=== PATIENT | female | born 1950 | race Caucasian/White ===

== ENCOUNTER 2022-11-16 18:12 | Inpatient (IN) | payer MEDICARE ==
[~2022-11-16] VITALS: Ht 149.9 cm; Wt 40.1 kg
[2022-11-16] MEDS ORDERED: polyethylene glycoL POWDER 17 GM (MIRALAX) PACK PO PRN (18:15)
[2022-11-16] MEDS ORDERED: RT-ALBUTEROL SULF 2.5 MG/3 ML PRE-MIX VIAL INH PRN ×2 (18:15→21:30)
[2022-11-16] MEDS ORDERED: CALCIUM CARBONATE 500 MG (TUMS) TAB.CHEW PO PRN (18:15)
[2022-11-16] MEDS ORDERED: ONDANSETRON 4 MG/2 ML (SDV) Z0FRAN IV PRN (18:15)
[2022-11-16] MEDS ORDERED: ANTACID SUSP 30 ML UDC (MYLANTA) PO PRN (18:15)
[2022-11-16 20:14] VITALS: BP 150/83
[2022-11-16] MEDS ORDERED: HYDR-3817 PO (20:32)
[2022-11-16] MEDS ORDERED: CITA20TA12 PO (20:32)
[2022-11-16] MEDS ORDERED: LISI20TA26 PO (20:32)
[2022-11-16] MEDS ORDERED: ALEN70TA85 PO (20:32)
[2022-11-16] MEDS ORDERED: hydrALAZINE (APESOLINE) 20 MG/ML VIAL IV PRN (20:45)
[2022-11-16] MEDS ORDERED: MELATONIN 3 MG TABLET ONE (21:05)
[2022-11-16] MEDS ORDERED: HYDROcodone/APAP 7.5 MG/325 MG (LORTAB, LORCET PLUS) TABLET PO ONE (21:05)
[2022-11-16] MEDS: HYDROcodone/APAP 7.5 MG/325 MG (LORTAB, LORCET PLUS) TABLET PO PRN (21:14)
[2022-11-16] MEDS: MELATONIN 3 MG TABLET PO PRN (21:14)
[2022-11-16] MEDS: RT-ALBUTEROL SULF 2.5 MG/3 ML PRE-MIX VIAL INH SCH (21:59)
[2022-11-17] VITALS (7 sets, daily range): BP systolic 108–134; BP diastolic 59–76
[2022-11-17] MEDS: RT-ALBUTEROL SULF 2.5 MG/3 ML PRE-MIX VIAL INH SCH ×6 (03:30→22:18)
[2022-11-17] MEDS ORDERED: ALBU8.5H6 IH (03:44)
[2022-11-17 06:35] LABS: HEMATOCRIT 39 % (35-52); HEMOGLOBIN 12.8 g/dL (11.5-16.0); MEAN CORPUSCULAR HEMOGLOBIN 31 pg (25-34); MEAN CORPUSCULAR HGB CONC 33 g/dL (32-36); MEAN CORPUSCULAR VOLUME 95 fL (80-99); MEAN PLATELET VOLUME 9.1 fL (9.0-12.2); PLATELET COUNT 200 10^3/uL (130-400); WHITE BLOOD COUNT 4.9 10^3/uL (4.3-11.0)
[2022-11-17 06:52] LABS: POTASSIUM 4.5 MMOL/L (3.6-5.0)
[2022-11-17 06:53] LABS: CALCIUM 9.2 MG/DL (8.5-10.1)
[2022-11-17 06:57] LABS: CREATININE SERUM 1.64 MG/DL (0.60-1.30)
[2022-11-17] MEDS: lisINopril 20 MG (PRINIVIL) TABLET PO SCH (08:35)
[2022-11-17] MEDS: OSELTAMIVIR 30 MG (TAMIFLU) CAPSULE PO SCH (08:35)
[2022-11-17] MEDS: predniSONE 20 MG TAB PO SCH (08:39)
--- NOTE | 2022-11-17 09:15 | History & Physical ---
MARYCARMEN KING 11/17/22 0915: History of Present Illness History of Present Illness Reason for visit/HPI Ms. Hoang is a 72 year old female with a PMHx of COPD, HTN, CKD III, and an abdominal aortic aneurysm who presents from [facility] for acute COPD exacerbation. Patient states she began experiencing SOA, subjective fever, and productive cough on Monday 11/12. Patient states her symptoms progressively worsened throughout the week. Patient denies having at-home pulse oximetry. Patient states she went the the [facility] ED on Friday 11/16 due to worsening SOA and lack of symptom improvement. Patient reports testing positive for influenza in the ED; patient denies knowing if she tested positive for flu A or B. Patient reports associated symptoms of headache, sore throat, and intermittent nausea. Patient denies abdominal pain, vomiting, or diarrhea. Patient reports a previous occurrence of COPD exacerbation [facility] 3 years ago. Patient reports albuterol breathing treatments are improving her symptoms. Patient reports chest pain she associates with GERD. Counseled patient if she experiences another occurrence of CP an EKG will be conducted. Date of Admission Nov 16, 2022 at 20:00 Date Seen by a Provider: Nov 17, 2022 Time Seen by a Provider: 08:30 I consulted on this patient on 11/17/22 09:06 Attending Physician Sharri Ma DO Admitting Physician Admitting Physician: Tyler Chauhan MD Attending Physician: Tyler Chauhan MD Consult Allergies and Home Medications Allergies Coded Allergies: prednisone (Verified Allergy, Mild, 11/17/22) reaction- bruising and swelling to trunk and upper extremities cephalexin (Unverified Allergy, Unknown, hives, 11/17/22) Patient Home Medication List Home Medication List Reviewed: Yes Albuterol Sulfate (Ventolin Hfa) 90 Mcg Hfa.aer.ad, 2 PUFF IH Q4H PRN for WHEEZING, (Reported) Entered as Reported by: PIPER DE LA PAZ on 11/17/22343 Last Action: Reviewed Alendronate Sodium (Fosamax) 70 Mg Tablet, 70 MG PO WEEK, (Reported) Entered as Reported by: PIPER DE LA PAZ on 11/16/222031 Last Action: Reviewed Citalopram Hydrobromide (Celexa) 20 Mg Tablet, 20 MG PO DAILY, (Reported) Entered as Reported by: PIPER DE LA PAZ on 11/16/222031 Last Action: Continued Hydrocodone/Acetaminophen (Hydrocodone-Acetamin 7.5-325) 7.5 Mg-325 Mg Tablet, 1 EACH PO Q6H PRN for PAIN-MODERATE (5-7), (Reported) Entered as Reported by: PIPER DE LA PAZ on 11/16/222031 Last Action: Continued Lisinopril (Lisinopril) 20 Mg Tablet, 20 MG PO DAILY, (Reported) Entered as Reported by: PIPER DE LA PAZ on 11/16/222031 Last Action: Continued Past Cedtnuw-Wyvlpa-Asdfah Hx Patient Social History Marrital Status: Employed/Student: retired Tobacco Use?: Yes Tobacco type used: Cigarettes Smoking Status: Current Everyday Smoker (1/2 pack per day for past 55 years) Substance use?: Yes Substance type: Marijuana (smoking and edibles. Last use on Monday 11/12 (smoked)) Substance frequency: Once in a while Alcohol Use?: No Pt feels they are or have been: No Immunizations Up To Date Date of Influenza Vaccine: Nov 12, 2022 Current Status Advance Directives: No Communicates: Verbally Primary Language: Moldovan Preferred Spoken Language: Moldovan Is interpretation needed?: No Past Medical History Surgeries: Abdominal (exploratory laparotomy), Appendectomy, Section, Hysterectomy COPD Aneurysm (abdominal aortic) [employer] History: Hysterectomy Abdominal Hernia Cervical Did You Recieve Any Treatments: Yes What Type of Treatment Did You: Surgical Intervention Family Medical History No Pertinent Family Hx Review of Systems Constitutional: no symptoms reported; No malaise EENTM: throat pain Respiratory: cough (productive with clear sputum); No short of breath Cardiovascular: no symptoms reported; No chest pain, No edema Gastrointestinal: No abdominal pain, No diarrhea; nausea; No vomiting Genitourinary: no symptoms reported : No Musculoskeletal: no symptoms reported Skin: no symptoms reported Psychiatric/Neurological: Headache All Other Systems Reviewed Negative Unless Noted: Yes Physical Exam Vital Signs Vital Signs - First Documented 11/16/22 11/16/22 11/16/22 20:00 20:14 21:19 Temp 37.1 Pulse 104 Resp 20 B/P (MAP) 150/83 (105) Pulse Ox 95 O2 Delivery Nasal Cannula O2 Flow Rate 3.00 FiO2 32 Capillary Refill : Height, Weight, BMI Height: '" Weight: lbs. oz. kg; 17.84 BMI Method: General Appearance: No Apparent Distress, WD/WN HEENT: PERRL/EOMI Respiratory: No Accessory Muscle Use, Wheezing (bilateral expiratory wheezing) Cardiovascular: Regular Rate, Rhythm, No Murmur Gastrointestinal: Normal Bowel Sounds, Non Tender, Soft Extremity: No Pedal Edema Neurologic/Psychiatric: Alert, Oriented x3, Normal Mood/Affect Skin: Normal Color, Warm/Dry Assessment/Plan Assessment and Plan 1. Acute COPD exacerbation -Supplemental oxygen for respiratory support as needed. Patient is currently using 2L via nasal cannula. Begin to wean as tolerated to room air -Systemic steroid therapy with dexamethasone 6mg PO daily -Nebulized albuterol breathing treatments 2.5mg Q4H -EKG if patient indicates chest pain 2. Influenza A -Tamiflu 30mg PO daily 3. HTN -Lisinopril 20mg PO daily; monitory BP (home medication) 4. CKD III -Cr 1.64, BUN 23 -Monitor with daily BMP -Encourage PO hydration and avoid NSAIDs for pain management 5. Aortic aneurysm -Last evaluated at [place] in summer of 2021 -Continue out-patient management 6. Depression -Citalopram 20mg PO daily (home medication) 7. Osteoporosis -Resume Lortab 7.5mg PO Q6H PRN for associated pain Admission Diagnosis Admission Status: Inpatient Order (span 2 midnights) Reason for Inpatient Admission: Acute COPD exacerbation TYLER CHAUHAN MD 11/17/22 1243: Allergies and Home Medications Allergies Coded Allergies: prednisone (Verified Allergy, Mild, 11/17/22) reaction- bruising and swelling to trunk and upper extremities cephalexin (Unverified Allergy, Unknown, hives, 11/17/22) Patient Home Medication List Albuterol Sulfate (Ventolin Hfa) 90 Mcg Hfa.aer.ad, 2 PUFF IH Q4H PRN for WHEEZING, (Reported) Entered as Reported by: PIPER DE LA PAZ on 11/17/22 0344 Last Action: Reviewed Alendronate Sodium (Fosamax) 70 Mg Tablet, 70 MG PO WEEK, (Reported) Entered as Reported by: PIPER DE LA PAZ on 11/16/222031 Last Action: Reviewed Citalopram Hydrobromide (Celexa) 20 Mg Tablet, 20 MG PO DAILY, (Reported) Entered as Reported by: PIPER DE LA PAZ on 11/16/222031 Last Action: Continued Hydrocodone/Acetaminophen (Hydrocodone-Acetamin 7.5-325) 7.5 Mg-325 Mg Tablet, 1 EACH PO Q6H PRN for PAIN-MODERATE (5-7), (Reported) Entered as Reported by: PIPER DE LA PAZ on 11/16/222031 Last Action: Continued Lisinopril (Lisinopril) 20 Mg Tablet, 20 MG PO DAILY, (Reported) Entered as Reported by: PIPER DE LA PAZ on 11/16/222031 Last Action: Continued Assessment/Plan Assessment and Plan Patient admitted to the hospital secondary to acute hypoxic respiratory failure secondary to COPD exacerbation from lower respiratory tract infection and influenza. I saw patient shortly after she returned from the bathroom and had taken her oxygen off and sats were into the 70s. Respiratory therapy was at bedside and had replaced this. Oxygen saturation improved into the 90s while at bedside. She reports feeling much better than yesterday and was able to eat some this morning. She has no specific complaints at this time. She does have an allergy to prednisone listed which is more likely an adverse effect but we will DC prednisone and resume Solu-Medrol if she tolerated that at the previous hospital. Supervisory-Addendum Brief Verification & Attestation Participated in pt care: history, MDM, physical Personally performed: exam, history, MDM, supervision of care Care discussed with: Medical Student Procedures: n/a Results interpretation: Verified all documentation Verification and Attestation of Medical Student E/M Service A medical student performed and documented this service in my presence. I reviewed and verified all information documented by the medical student and made modifications to such information, when appropriate. I personally performed the physical exam and medical decision making. Tyler Chauhan, Nov 17, 2022,12:42 MARYCARMEN KING Nov 17, 2022 09:15 TYLER CHAUHAN MD Nov 17, 2022 12:43
[2022-11-17] MEDS: HYDROcodone/APAP 7.5 MG/325 MG (LORTAB, LORCET PLUS) TABLET PO PRN (16:05)
[2022-11-17] MEDS ORDERED: methylPREDNISolone 40 MG/ML (Solu-MEDROL) VIAL IV SCH (18:00)
[2022-11-17] MEDS: guaiFENesin (MUCINEX) 600 MG TAB PO SCH (20:50)
[2022-11-17] MEDS: ACETAMINOPHEN 325 MG TABLET PO PRN (23:59)
[2022-11-18] VITALS (7 sets, daily range): BP systolic 111–150; BP diastolic 66–80
[2022-11-18] MEDS: RT-ALBUTEROL SULF 2.5 MG/3 ML PRE-MIX VIAL INH SCH ×6 (02:54→22:19)
[2022-11-18 06:56] LABS: HEMATOCRIT 40 % (35-52); HEMOGLOBIN 13.1 g/dL (11.5-16.0); MEAN CORPUSCULAR HEMOGLOBIN 31 pg (25-34); MEAN CORPUSCULAR HGB CONC 33 g/dL (32-36); MEAN CORPUSCULAR VOLUME 95 fL (80-99); MEAN PLATELET VOLUME 9.1 fL (9.0-12.2); PLATELET COUNT 188 10^3/uL (130-400)
[2022-11-18 07:23] LABS: CALCIUM 8.9 MG/DL (8.5-10.1); CREATININE SERUM 1.48 MG/DL (0.60-1.30)
[2022-11-18] MEDS: lisINopril 20 MG (PRINIVIL) TABLET PO SCH (09:24)
[2022-11-18] MEDS: ACETAMINOPHEN 325 MG TABLET PO PRN ×2 (09:25→19:51)
[2022-11-18] MEDS: guaiFENesin (MUCINEX) 600 MG TAB PO SCH ×2 (09:25→19:52)
[2022-11-18] MEDS: predniSONE 20 MG TAB PO SCH (09:26)
[2022-11-18] MEDS: OSELTAMIVIR 30 MG (TAMIFLU) CAPSULE PO SCH (09:37)
--- NOTE | 2022-11-18 10:45 | Progress Note ---
LANDRY KINGAELA 11/18/22 1045: Subjective Date Seen by a Provider: Nov 18, 2022 Time Seen by a Provider: 09:15 Subjective/Events-last exam Ms. Hoang is a 72 year old female with a PMHx of COPD, HTN, CKD III, and an abdominal aortic aneurysm who presents from [facility] for acute COPD exacerbation. Patient has been admitted to Hospitalist service for management of acute COPD exacerbation likely secondary to influenza A. Patient is hunched over in bed this morning with emesis bin next to her. Patient is alert and sits up while talking. Patient states she feels about the same as yesterday. Patient denies CP, SOA, abdominal pain, or diarrhea. Patient reports chills during the night that improved with Tylenol. Patient reports nausea this morning; denies emesis but states she has been coughing up clear fluid. Review of Systems General: Chills (overnight) HEENT: No Head Aches Pulmonary: No Dyspnea, No Cough Cardiovascular: No: Chest Pain Gastrointestinal: Nausea, Vomiting (wretching with excretion of clear fluid) Objective Exam Last Set of Vital Signs Vital Signs Date Time Temp Pulse Resp B/P (MAP) Pulse Ox O2 Delivery O2 Flow Rate FiO2 11/18/22 08:05 36.6 106 20 129/66 (87) 93 Nasal Cannula 2.00 11/16/22 21:19 32 Capillary Refill : I&O Intake and Output 11/18/22 00:00 Intake Total 1220 ml Output Total 1000 ml Balance 220 ml Intake Oral 1220 ml Output Urine Total 1000 ml General: Alert Lungs: Other (bilateral expiratory wheezing) Heart: Regular Rate, No Murmurs Abdomen: Normal Bowel Sounds, Soft Extremities: No Edema Neuro: Normal Speech Psych/Mental Status: Mental Status NL, Mood NL Results Lab Laboratory Tests 11/18/22 06:32: White Blood Count 6.0, Red Blood Count 4.25, Hemoglobin 13.1, Hematocrit 40, Mean Corpuscular Volume 95, Mean Corpuscular Hemoglobin 31, Mean Corpuscular Hemoglobin Concent 33, Red Cell Distribution Width 13.2, Platelet Count 188, Mean Platelet Volume 9.1, Sodium Level 135, Potassium Level 5.0, Chloride Level 103, Carbon Dioxide Level 23, Anion Gap 9, Blood Urea Nitrogen 24H, Creatinine 1.48H, Estimat Glomerular Filtration Rate 38, BUN/Creatinine Ratio 16, Glucose Level 82, Calcium Level 8.9 Assessment/Plan Assessment/Plan Assess & Plan/Chief Complaint 1. Acute COPD exacerbation -Supplemental oxygen for respiratory support as needed. Patient is currently using 1L via nasal cannula. -Home O2 study prior to discharge -Nebulized albuterol breathing treatments 2.5mg Q4H -EKG if patient indicates chest pain -Zofran 4mg IV Q4H PRN for nausea -Anticipate discharge on 11/19 if patient continues to do well 2. Influenza A -Tamiflu 30mg PO daily -Temperature of 37.7 at 02:04 on 11/18. Tylenol 625mg PO if temperature is 38.0 or greater with clinical symptoms of aches, chill, malaise. 3. HTN -Lisinopril 20mg PO daily; monitory BP (home medication) 4. CKD III -Cr 1.64, BUN 23 -Monitor with daily BMP -Encourage PO hydration and avoid NSAIDs for pain management 5. Aortic aneurysm -Last evaluated at [place] in summer -Continue out-patient management 6. Depression -Citalopram 20mg PO daily (home medication) 7. Osteoporosis -Resume Lortab 7.5mg PO Q6H PRN for associated pain Clinical Quality Measures Admission Status Admission Dx 1. Acute COPD exacerbation -Supplemental oxygen for respiratory support as needed. Patient is currently using 2L via nasal cannula. Begin to wean as tolerated to room air -Systemic steroid therapy with dexamethasone 6mg PO daily -Nebulized albuterol breathing treatments 2.5mg Q4H -EKG if patient indicates chest pain 2. Influenza A -Tamiflu 30mg PO daily 3. HTN -Lisinopril 20mg PO daily; monitory BP (home medication) 4. CKD III -Cr 1.64, BUN 23 -Monitor with daily BMP -Encourage PO hydration and avoid NSAIDs for pain management 5. Aortic aneurysm -Last evaluated at [place] in summer -Continue out-patient management 6. Depression -Citalopram 20mg PO daily (home medication) 7. Osteoporosis -Resume Lortab 7.5mg PO Q6H PRN for associated pain LESLEE CHAUHAN MD 11/18/22 1442: Assessment/Plan Assessment/Plan Assess & Plan/Chief Complaint Patient reports feeling better today. Breathing easier. Did have rising temp last night but responded to Tylenol before fevered. No specific complaints other than chronic pain. We did discuss her steroid allergy and will defer treatment with them at this time still as she is improving. Supervisory-Addendum Brief Verification & Attestation Participated in pt care: history, MDM, physical Personally performed: exam, history, MDM, supervision of care Care discussed with: Medical Student Procedures: n/a Results interpretation: Verified all documentation Verification and Attestation of Medical Student E/M Service A medical student performed and documented this service in my presence. I reviewed and verified all information documented by the medical student and made modifications to such information, when appropriate. I personally performed the physical exam and medical decision making. Leslee Chauhan, Nov 18, 2022,14:40 MARYCARMEN KING Nov 18, 2022 10:45 LESLEE CHAUHAN MD Nov 18, 2022 14:42
[2022-11-18] MEDS: HYDROcodone/APAP 7.5 MG/325 MG (LORTAB, LORCET PLUS) TABLET PO PRN ×2 (13:36→19:51)
[2022-11-18] MEDS: MELATONIN 3 MG TABLET PO PRN ×2 (19:51)
[2022-11-19] MEDS: RT-ALBUTEROL SULF 2.5 MG/3 ML PRE-MIX VIAL INH SCH ×4 (02:30→21:41)
[2022-11-19 03:46] VITALS: BP 130/78
[2022-11-19 06:02] LABS: HEMATOCRIT 39 % (35-52); HEMOGLOBIN 12.8 g/dL (11.5-16.0); MEAN CORPUSCULAR HEMOGLOBIN 31 pg (25-34); MEAN CORPUSCULAR HGB CONC 33 g/dL (32-36); MEAN CORPUSCULAR VOLUME 93 fL (80-99); MEAN PLATELET VOLUME 9.1 fL (9.0-12.2); PLATELET COUNT 209 10^3/uL (130-400); WHITE BLOOD COUNT 8.3 10^3/uL (4.3-11.0)
[2022-11-19 06:15] LABS: CALCIUM 8.9 MG/DL (8.5-10.1); CREATININE SERUM 1.43 MG/DL (0.60-1.30)
[2022-11-19 07:40] VITALS: BP 114/79
[2022-11-19] MEDS: OSELTAMIVIR 30 MG (TAMIFLU) CAPSULE PO SCH (08:51)
[2022-11-19] MEDS: guaiFENesin (MUCINEX) 600 MG TAB PO SCH ×2 (08:51→20:37)
[2022-11-19] MEDS: lisINopril 20 MG (PRINIVIL) TABLET PO SCH (08:51)
[2022-11-19] MEDS: HYDROcodone/APAP 7.5 MG/325 MG (LORTAB, LORCET PLUS) TABLET PO PRN (08:51)
[2022-11-19] MEDS ORDERED: ACET-2267 PO (10:20)
[2022-11-19] MEDS ORDERED: ASPI325T32 PO (10:20)
[2022-11-19 11:45] VITALS: BP 101/65
[2022-11-19] MEDS ORDERED: OSEL30CA PO (14:05)
--- NOTE | 2022-11-19 14:05 | Physical Therapy Evaluation ---
PT Evaluation-General Medical Diagnosis Admission Date Nov 16, 2022 at 20:00 Medical Diagnosis: COPD exacerbation/Flu A Onset Date: Nov 16, 2022 Therapy Diagnosis Therapy Diagnosis: debility Precautions Precautions/Isolations: Droplet Isolation, Fall Prevention, Pressure Ulcer Referral Physician: Irasema Reason for Referral: Evaluation/Treatment Medical History Pertinent Medical History: COPD, HTN, Renal Insufficiency, Smoking Current History admitted due to SOA Reviewed History: Yes Social History Home: Single Level Current Living Status: Children Entry Into Home: Level Entry Prior Prior Level of Function SCALE: Activities may be completed with or without assistive devices. 3-Bcnutelosh-xmgfekm completes the activity by him/herself with no assistance from a helper. 5-Set-up or Clean-up Assistance-helper sets up or cleans up; patient completes activity. [place] assists only prior to or following the activity. 4-Supervision or Touching Assistance-helper provides verbal cues and/or touching/steadying and/or contact guard assistance as patient completes activity. Assistance may be provided throughout the activity or intermittently. 3-Partial/Moderate Assistance-helper does LESS THAN HALF the effort. [place] lifts, holds or supports trunk or limbs, but provides less than half the effort. 2-Substantial/Maximal Assistance-helper does MORE THAN HALF the effort. [place] lifts or holds trunk or limbs and provides more than half the effort. 8-Gfcvnptgk-rlgrir does ALL the effort. Patient does none of the effort to complete the activity. Or, the assistance of 2 or more helpers is required for the patient to complete the activity. If activity was not attempted, code reason: 7-Patient Refused. 9-Not Applicable-not attempted and the patient did not perform the activity before the current illness, exacerbation or injury. 10-Not Attempted due to Environmental Limitations-(lack of equipment, weather restraints, etc.). 88-Not Attempted due to Medical Conditions or Safety Concerns. Bed Mobility: 6 Transfers (B,C,W/C): 6 Gait: 6 Stairs: 6 Indoor Mobility (Ambulation): Independent Stairs: Independent Prior Devices Use: None PT Evaluation-Current Subjective Patient observed getting up to commode independently. Agrees to PT. Objective Patient Orientation: Normal For Age Attachments: Oxygen ROM/Strength ROM Lower Extremities bilateral LE WFL Strength Lower Extremities 4-/5 grossly bilateral LE Integumentary/Posture Bowel Incontinence: No Bladder Incontinence: No Posture WFL Neuromuscular (Tone, Coordination, Reflexes) grossly intact Sensory Vision: Functional Hearing: Functional Transfers Roll Left to Right (QC): 6 Sit to Lying (QC): 6 Lying to Sitting/Side of Bed(Q: 6 Sit to Stand (QC): 6 Gait Mode of Locomotion: Walk Anticipated Mode of Locomotion: Walk Walk 10 feet (QC): 6 Walk 50 ft with 2 Turns(QC): 6 Walk 150 ft (QC): 6 Distance: 150' Gait Assistive Device: None Comments/Gait Description slightly unsteady initially with self correct Balance Sitting Static: Normal Sitting Dynamic: Normal Standing Static: Normal Standing Dynamic: Normal Assessment/Needs Patient will be seen short term by skilled PT to ensure safe return to home at maximum LOF. Patient is currently limited by SOA with mild c/o dizziness with O2 in place. Rehab Potential: Fair PT Mcc Goals Windows Migration Technician Goals PT Windows Migration Technician Goals Time Frame: Nov 23, 2022 Roll Left & Right (QC): 6 Sit to Lying (QC): 6 Lying-Sitting on Side/Bed(QC): 6 Sit to Stand (QC): 6 Chair/Gvl-fg-Mpeib Xfer(QC): 6 Toilet Transfer (QC): 6 Walk 10 feet (QC): 6 Walk 50ft with 2 Turns (QC): 6 Walk 150 ft (QC): 6 PT Plan Problem List Problem List: Activity Tolerance Treatment/Plan Treatment Plan: Continue Plan of Care Treatment Plan: Education, Functional Activity Jony, Functional Strength, Gait, Safety, Therapeutic Exercise, Transfers Treatment Duration: Nov 23, 2022 Frequency: 5 times per week Estimated Hrs Per Day: .25 hour per day Patient and/or Family Agrees t: Yes Time Time In: 1315 Time Out: 1330 DATE: Nov 19, 2022 Total Billed Treatment Time: 15 [facility] Y[facility] Nov 19, 2022 14:05
[2022-11-19] MEDS ORDERED: RELABEL FOR HOME USE MC SCH (14:15)
[2022-11-19] MEDS ORDERED: OSELTAMIVIR 30 MG (TAMIFLU) CAPSULE PO SCH (15:15)
[2022-11-19 15:51] VITALS: BP 114/58
[2022-11-19] MEDS: ACETAMINOPHEN 325 MG TABLET PO PRN (18:21)
[2022-11-19 19:25] VITALS: BP 109/69
--- NOTE | 2022-11-19 19:52 | Progress Note - Hospitalist ---
Subjective HPI/CC On Admission Date Seen by Provider: Nov 19, 2022 Time Seen by Provider: 12:35 Subjective/Events-last exam She is feeling better. She has been up and moving. She has been short of breath with activity. Objective Exam Vital Signs Vital Signs Date Time Temp Pulse Resp B/P (MAP) Pulse Ox O2 Delivery O2 Flow Rate FiO2 11/19/22 19:25 38.1 79 18 109/69 (82) 95 Nasal Cannula 4.00 11/16/22 21:19 32 Capillary Refill : General Appearance: No Apparent Distress, Thin Respiratory: Lungs Clear, No Respiratory Distress Cardiovascular: Regular Rate, Rhythm, No Murmur Gastrointestinal: Normal Bowel Sounds, Soft Extremity: Normal Inspection, No Pedal Edema Neurologic/Psychiatric: Alert, Normal Mood/Affect Skin: Normal Color, Warm/Dry Results/Procedures Lab Laboratory Tests 11/19/22 05:50 Patient resulted labs reviewed. Imaging: Reviewed Imaging Report Assessment/Plan Assessment and Plan Assess & Plan/Chief Complaint Acute respiratory failure with hypoxia Acute COPD exacerbation Refusing steroids MAT protocol Qualified for home oxygen Discharge delayed because of late oxygen delivery Influenza A Tamiflu HTN CKD 3b Aortic aneurysm Depression Osteoporosis Continue home meds DVT prophylaxis: Lovenox Diagnosis/Problems Diagnosis/Problems (1) Acute respiratory failure Status: Acute Qualifiers: Respiratory failure complication: hypoxia Qualified Codes: J96.01 - Acute respiratory failure with hypoxia (2) COPD (chronic obstructive pulmonary disease) Status: Acute (3) Flu Status: Acute AYAD MANDUJANO MD Nov 19, 2022 19:52
[2022-11-19] MEDS ORDERED: ENOXAPARIN INJECTION 30 MG/0.3 ML SYR SC SCH (20:00)
[2022-11-19] MEDS: MELATONIN 3 MG TABLET PO PRN (20:37)
[2022-11-19 23:20] VITALS: BP 106/69
[2022-11-20] MEDS: RT-ALBUTEROL SULF 2.5 MG/3 ML PRE-MIX VIAL INH SCH ×2 (03:41→06:18)
[2022-11-20 04:04] VITALS: BP 134/80
[2022-11-20 06:27] LABS: HEMATOCRIT 38 % (35-52); HEMOGLOBIN 12.6 g/dL (11.5-16.0); MEAN CORPUSCULAR HEMOGLOBIN 31 pg (25-34); MEAN CORPUSCULAR HGB CONC 33 g/dL (32-36); MEAN CORPUSCULAR VOLUME 93 fL (80-99); MEAN PLATELET VOLUME 9.4 fL (9.0-12.2); PLATELET COUNT 191 10^3/uL (130-400); WHITE BLOOD COUNT 5.9 10^3/uL (4.3-11.0)
[2022-11-20 06:43] LABS: CALCIUM 8.8 MG/DL (8.5-10.1)
[2022-11-20 06:47] LABS: CREATININE SERUM 1.28 MG/DL (0.60-1.30)
[2022-11-20 08:11] VITALS: BP 117/72
[2022-11-20] MEDS: lisINopril 20 MG (PRINIVIL) TABLET PO SCH ×2 (08:47→09:36)
[2022-11-20] MEDS: guaiFENesin (MUCINEX) 600 MG TAB PO SCH (08:47)
[2022-11-20] MEDS: OSELTAMIVIR 30 MG (TAMIFLU) CAPSULE PO SCH (08:47)
[2022-11-20 11:41] VITALS: BP 115/61
[2022-11-20] MEDS: HYDROcodone/APAP 7.5 MG/325 MG (LORTAB, LORCET PLUS) TABLET PO PRN (14:41)
[2022-11-20 14:45] VITALS: BP 115/61
--- NOTE | 2022-11-20 16:44 | Discharge Summary ---
Discharge Summary Hospital Course Was the Problem List Reviewed?: Yes Problems/Dx: (1) Acute respiratory failure Status: Acute Qualifiers: Qualified Codes: J96.01 - Acute respiratory failure with hypoxia (2) COPD (chronic obstructive pulmonary disease) Status: Acute (3) Flu Status: Acute Hospital Course Date of Admission: Nov 16, 2022 at 20:00 Admission Diagnosis : Acute respiratory failure with hypoxia due to COPD exacerbation and influenza A Family Physician/Provider: Sharri Ma DO Date of Discharge: 11/20/22 Discharge Diagnosis: Acute respiratory failure with hypoxia due to COPD exacerbation and influenza A Hospital Course: Hanane Hoang is a 72 year old female with PMH COPD, tobacco abuse, HTN, CKD, low BMI, who presented with shortness of breath and was admitted with acute respiratory failure with hypoxia due to COPD exacerbation and influenza A. She was treated with breathing treatments and Tamiflu. She refused steroids. She continued to require supplemental oxygen and was set up with oxygen for home use. She worked with PT and was doing well. She was discharged home in stable condition. She should follow up with her PCP in about a week. Labs and Pending Lab Test: Laboratory Tests 11/20/22 06:00: White Blood Count 5.9, Red Blood Count 4.12, Hemoglobin 12.6, Hematocrit 38, Mean Corpuscular Volume 93, Mean Corpuscular Hemoglobin 31, Mean Corpuscular Hemoglobin Concent 33, Red Cell Distribution Width 13.1, Platelet Count 191, Mean Platelet Volume 9.4, Sodium Level 134L, Potassium Level 5.0, Chloride Level 101, Carbon Dioxide Level 23, Anion Gap 10, Blood Urea Nitrogen 21H, Creatinine 1.28, Estimat Glomerular Filtration Rate 45, BUN/Creatinine Ratio 16, Glucose Level 98, Calcium Level 8.8 Home Meds Active Tamiflu (Oseltamivir Phosphate) 30 Mg Capsule 30 Mg PO DAILY 2 Days Reported Aspirin EC (Aspirin) 325 Mg Tablet.dr 325 Mg PO DAILY Tylenol Extra Strength (Acetaminophen) 500 Mg Tablet 1,000 Mg PO Q8H PRN Ventolin Hfa (Albuterol Sulfate) 90 Mcg Hfa.aer.ad 2 Puff IH Q4H PRN Hydrocodone-Acetamin 7.5-325 (Hydrocodone/Acetaminophen) 7.5 Mg-325 Mg Tablet 1 Each PO Q6H PRN Fosamax (Alendronate Sodium) 70 Mg Tablet 70 Mg PO MON Celexa (Citalopram Hydrobromide) 20 Mg Tablet 20 Mg PO DAILY Lisinopril 20 Mg Tablet 20 Mg PO DAILY Assessment/Pt Instructions See instructions Discharge Planning: >30 minutes discharge planning Discharge Instructions Discharge Diet: No Restrictions Activity as Tolerated: Yes Discharge Physical Examination Vital Signs Vital Signs Date Time Temp Pulse Resp B/P (MAP) Pulse Ox O2 Delivery O2 Flow Rate FiO2 11/20/22 14:45 36.9 81 16 115/61 96 Nasal Cannula 4.00 11/16/22 21:19 32 General Appearance: No Apparent Distress, Thin Respiratory: No Respiratory Distress, Decreased Breath Sounds Cardiovascular: Regular Rate, Rhythm, No Murmur Gastrointestinal: Normal Bowel Sounds, Soft Extremity: Normal Inspection, No Pedal Edema Skin: Normal Color, Warm/Dry Neurologic/Psychiatric: Alert, Normal Mood/Affect Allergies: Coded Allergies: prednisone (Verified Allergy, Mild, 11/17/22) reaction- bruising and swelling to trunk and upper extremities cephalexin (Unverified Allergy, Unknown, hives, 11/17/22) Discharge Summary Date of Admission Nov 16, 2022 at 20:00 Date of Discharge Nov 20, 2022 at 14:45 Discharge Date: Nov 20, 2022 Discharge Time: 14:45 Admission Diagnosis Acute respiratory failure with hypoxia due to COPD and influenza A Discharge Diagnosis Acute respiratory failure with hypoxia Acute COPD exacerbation Influenza A (1) Acute respiratory failure Status: Acute Qualifiers: Qualified Codes: J96.01 - Acute respiratory failure with hypoxia (2) COPD (chronic obstructive pulmonary disease) Status: Acute (3) Flu Status: Acute AYAD MANDUJANO MD Nov 20, 2022 16:44
== END 2022-11-20 14:45 | disposition home or self-care (01) | DRG 193 ==
LOC: 4TH 20:00
PROVIDERS: ADMIT Family Medicine; ATTEND Internal Medicine
DX: J10.1 Influenza due to other identified influenza virus with other respiratory manifestations (principal); J96.01 Acute respiratory failure with hypoxia; J44.1 Chronic obstructive pulmonary disease with (acute) exacerbation; I12.9 Hypertensive chronic kidney disease with stage 1 through stage 4 chronic kidney disease, or unspecified chronic kidney disease; I71.40 Abdominal aortic aneurysm, without rupture, unspecified; K21.9 Gastro-esophageal reflux disease without esophagitis; F17.210 Nicotine dependence, cigarettes, uncomplicated; F32.A Depression, unspecified; M81.0 Age-related osteoporosis without current pathological fracture; N18.32 Chronic kidney disease, stage 3b
CPT/HCPCS: 36415; 80048; 85027; 94640; 94664; 94760; 94761